=== PATIENT | female | born 1960 | race Caucasian/White ===

== ENCOUNTER → 2016-11-17 | Outpatient (CLI) | payer MEDICARE, OTHER ==
[~2016-11-17] MED LIST: ALBUTEROL 0.083% NEB; ALBUTEROL INHALER INH; ASPIRIN 325MG325 MG PO; BUSPIRONE HCL15 MG PO; CLEOCIN HCL300 MG PO; ELAVIL 50 MG TA50 MG PO; HYDROCODON-ACE1 EAC6 PO; IBUPROFEN800 MG PO; LORTAB 5-325 M1 EACH PO; NEURONTIN800 MG PO; PERCOCET 10-321 EACH PO; PROZAC20 MG PO; TORADOL 10 MG T10 MG PO; XARELTO10 MG PO; ZANTAC300 MG PO; ZOFRAN4 MG PO
[2016-11-17 10:06] LABS: HEMOGLOBIN 14.5 gm/dl (12.3-15.3); RED BLOOD COUNT 4.5 M/UL (4.00-5.10); WHITE BLOOD COUNT 7.7 K/UL (4.5-11.0)
[2016-11-17 10:28] LABS: BUN/CREATININE RATIO 15 (0-10)
== END ==
LOC: OPSV2 08:57
PROVIDERS: Orthopaedic Surgery
DX: Z01.818 Encounter for other preprocedural examination (principal); M13.862 Other specified arthritis, left knee
CPT/HCPCS: 36415; 80048; 81001; 85025; 87081; 93005

== ENCOUNTER → 2016-11-29 | Outpatient (CLI) | payer MEDICARE, OTHER | LOC: LAB 13:23 | DX: Z01.818 Encounter for other preprocedural examination (principal); M17.12 Unilateral primary osteoarthritis, left knee | CPT/HCPCS: 36415; 80051; 82565; 84520; 86850; 86900; 86901 ==

== ENCOUNTER 2016-11-30 07:50 | Observation (INO) | payer MEDICARE, OTHER ==
[~2016-11-30] VITALS: Ht 162.6 cm; Wt 71.2 kg
[~2016-11-30 07:50] MED LIST changes: -ALBUTEROL INHALER INH; -ASPIRIN 325MG325 MG PO; -CLEOCIN HCL300 MG PO; -HYDROCODON-ACE1 EAC6 PO; -IBUPROFEN800 MG PO; -LORTAB 5-325 M1 EACH PO; -TORADOL 10 MG T10 MG PO; -ZOFRAN4 MG PO
[2016-11-30] MEDS ORDERED: LORTAB 5-325 M1 EACH PO (08:32)
[2016-11-30] MEDS ORDERED: HYDROCODON-ACE1 EAC6 PO (08:33)
[2016-11-30] MEDS ORDERED: ALBUTEROL INHALER INH (08:34)
[2016-11-30] MEDS ORDERED: TORADOL 10 MG T10 MG PO (19:30)
[2016-11-30] MEDS ORDERED: IBUPROFEN800 MG PO ×2 (19:31→19:35)
[2016-11-30] MEDS ORDERED: CLEOCIN HCL300 MG PO (19:36)
[2016-11-30] MEDS ORDERED: PERCOCET 10-321 EACH PO (19:36)
[2016-11-30] MEDS ORDERED: ASPIRIN 325MG325 MG PO (19:37)
[2016-11-30] MEDS ORDERED: ZOFRAN4 MG PO (19:37)
[2016-12-01 06:40] LABS: HEMOGLOBIN 10.7 gm/dl (12.3-15.3); RED BLOOD COUNT 3.44 M/UL (4.00-5.10); WHITE BLOOD COUNT 9.8 K/UL (4.5-11.0)
[2016-12-01 06:59] LABS: BUN/CREATININE RATIO 14 (0-10)
[2016-12-01] MEDS ORDERED: XARELTO10 MG PO (10:49)
[2016-12-01] MEDS ORDERED: PERCOCET 10-321 EACH PO (10:50)
== END 2016-12-01 15:32 | disposition home or self-care (01) ==
LOC: OR 07:50 → EDSTATUS 12:30 → M/S 14:08 → OR 14:37 → M/S 12-01 15:32
PROVIDERS: ADMIT Orthopaedic Surgery
PROC: 0SRD0L9 Replacement of Left Knee Joint with Medial Unicondylar Synthetic Substitute, Cemented, Open Approach (ICD-10-PCS; principal; 2016-11-30 12:30)
DX: M17.12 Unilateral primary osteoarthritis, left knee (principal); M22.42 Chondromalacia patellae, left knee; J45.909 Unspecified asthma, uncomplicated; J44.9 Chronic obstructive pulmonary disease, unspecified; K21.9 Gastro-esophageal reflux disease without esophagitis; M81.0 Age-related osteoporosis without current pathological fracture; G89.29 Other chronic pain; M54.9 Dorsalgia, unspecified; F41.9 Anxiety disorder, unspecified; F32.9 Major depressive disorder, single episode, unspecified; F17.210 Nicotine dependence, cigarettes, uncomplicated; Z82.49 Family history of ischemic heart disease and other diseases of the circulatory system; Z83.3 Family history of diabetes mellitus; Z88.8 Allergy status to other drugs, medicaments and biological substances; Z79.891 Long term (current) use of opiate analgesic; Z79.899 Other long term (current) drug therapy; Z96.651 Presence of right artificial knee joint; Z98.890 Other specified postprocedural states
CPT/HCPCS: 36415; 73560; 80048; 85025; 96374; 96375; 96376; 97116; 97530; 97535; C1713; G0378; J0690; J1100; J1885; J2001; J2250; J2270; J2405; J2710; J2795; J3010; J3370; J7030; J7050; J7120

== ENCOUNTER 2020-10-08 12:38 | Emergency (ER) | payer MEDICARE, OTHER ==
[~2020-10-08 12:38] MED LIST changes: +ALBUTEROL INHALER INH; +AMITRIPTYLINE H50 MG PO; +ASPIRIN 325MG325 MG PO; +CLEOCIN HCL300 MG PO; +HYDROCODON-ACE1 EAC6 PO; +IBUPROFEN800 MG PO; +LORTAB 5-325 M1 EACH PO; +MACRODANTIN100 MG PO; +NEURONTIN 400400 MG PO; +NORCO 10-325 T1 EACH PO; +TORADOL 10 MG T10 MG PO; +ZOFRAN 4 MG TAB4 MG PO; +ZOFRAN4 MG PO
[2020-10-08 14:48] LABS: HEMOGLOBIN 13.6 gm/dl (12.3-15.3); RED BLOOD COUNT 4.17 M/UL (4.00-5.10); WHITE BLOOD COUNT 6.9 K/UL (4.5-11.0)
[2020-10-08 15:04] LABS: BUN/CREATININE RATIO 14 (0-10)
[2020-10-08] MEDS ORDERED: PROTONIX40 M1 PO (19:08)
== END 2020-10-08 19:18 | disposition home or self-care (01) ==
LOC: ER1 12:38
PROVIDERS: Emergency Medicine
DX: R04.2 Hemoptysis (principal); F17.210 Nicotine dependence, cigarettes, uncomplicated; Z90.89 Acquired absence of other organs
CPT/HCPCS: 71045; 80053; 81001; 82550; 82553; 83605; 83690; 83874; 84484; 85025; 85379; 85610; 93005; 96374; 96375; 99284; J2270; J2405; J7030; Q9967

== ENCOUNTER 2021-01-27 16:53 | Observation (INO) | payer MEDICARE, OTHER ==
[~2021-01-27] VITALS: Ht 162.6 cm; Wt 68.0 kg
[~2021-01-27 16:53] MED LIST changes: +PROTONIX40 M1 PO
[2021-01-27 17:48] LABS: HEMOGLOBIN 14.1 gm/dl (12.3-15.3); RED BLOOD COUNT 4.05 M/UL (4.00-5.10); WHITE BLOOD COUNT 11.2 K/UL (4.5-11.0)
[2021-01-27 18:43] LABS: BUN/CREATININE RATIO 23 (0-10)
[2021-01-28] MEDS ORDERED: PROZAC 20 MG CA20 MG PO (01:49)
[2021-01-28 07:49] LABS: BUN/CREATININE RATIO 20 (0-10)
[2021-01-28] MEDS ORDERED: HYDROCODON-ACE1 EAC6 PO (18:55)
--- NOTE | 2021-01-28 18:57 | NUR ---
SEE NEW ORDERS FROM DR. CURRAN FOR PAIN, N/V.
[2021-01-29 06:50] LABS: HEMOGLOBIN 13.6 gm/dl (12.3-15.3); RED BLOOD COUNT 3.98 M/UL (4.00-5.10); WHITE BLOOD COUNT 7.3 K/UL (4.5-11.0)
[2021-01-29 07:12] LABS: BUN/CREATININE RATIO 21 (0-10)
--- NOTE | 2021-01-29 12:11 | NUR ---
DR. CURRAN NOTIFIED OF 7 BEAT RUN OF VTACH. NO NEW ORDERS
--- NOTE | 2021-01-29 14:22 | NUR ---
ambulated patient in hallway monitoring o2 saturation. sat 88%
[2021-01-29] MEDS ORDERED: FAMOTIDINE20 MG PO (14:37)
[2021-01-29] MEDS ORDERED: ASPIRIN EC81 MG PO (14:37)
[2021-01-29] MEDS ORDERED: LOPRESSOR 25 MG25 MG PO (14:37)
[2021-01-29] MEDS ORDERED: ATORVASTATIN CA20 MG PO (14:37)
== END 2021-01-29 16:40 | disposition home or self-care (01) ==
LOC: ER1 16:53 → CDU 20:16 → M/S 20:16
PROVIDERS: Internal Medicine; Physician Assistant Medical; ADMIT Internal Medicine
DX: R07.89 Other chest pain (principal); E87.6 Hypokalemia; E16.2 Hypoglycemia, unspecified; R09.02 Hypoxemia; R71.8 Other abnormality of red blood cells; E78.5 Hyperlipidemia, unspecified; F17.210 Nicotine dependence, cigarettes, uncomplicated; F15.10 Other stimulant abuse, uncomplicated; G89.4 Chronic pain syndrome; F41.9 Anxiety disorder, unspecified; F32.9 Major depressive disorder, single episode, unspecified; K21.9 Gastro-esophageal reflux disease without esophagitis; Z20.822 Contact with and (suspected) exposure to COVID-19; Z87.11 Personal history of peptic ulcer disease; Z96.653 Presence of artificial knee joint, bilateral; Z98.890 Other specified postprocedural states; Z96.698 Presence of other orthopedic joint implants; Z79.899 Other long term (current) drug therapy; Z88.5 Allergy status to narcotic agent
CPT/HCPCS: ECHO; 36415; 36600; 71045; 78452; 80048; 80053; 80061; 82550; 82553; 82607; 82652; 82746; 82803; 82962; 83036; 83735; 83874; 84100; 84439; 84443; 84484; 84550; 85025; 93005; 93017; 93306; 96372; 96374; 96375; 96376; 99285; A9502; C9113; G0378; J1650; J2405; J2550; J2785; U0002

== ENCOUNTER → 2021-04-06 | Outpatient (CLI) | payer MEDICARE, OTHER ==
[~2021-04-06] MED LIST changes: +ASPIRIN EC81 MG PO; +ATORVASTATIN CA20 MG PO; +FAMOTIDINE20 MG PO; +LOPRESSOR 25 MG25 MG PO; +PROZAC 20 MG CA20 MG PO
== END ==
LOC: HEART 5 11:47
DX: J44.9 Chronic obstructive pulmonary disease, unspecified (principal); R94.2 Abnormal results of pulmonary function studies; F17.210 Nicotine dependence, cigarettes, uncomplicated
CPT/HCPCS: 94060; 94729

== ENCOUNTER → 2021-04-06 | Outpatient (CLI) | payer MEDICARE, OTHER | LOC: RT 13:28 | DX: R09.02 Hypoxemia (principal) | CPT/HCPCS: 36600; 82803 ==

== ENCOUNTER → 2022-03-02 | Outpatient (CLI) | payer MEDICARE, OTHER | LOC: HEART 5 02-16 09:00 | DX: I25.10 Atherosclerotic heart disease of native coronary artery without angina pectoris (principal); I10 Essential (primary) hypertension; R42 Dizziness and giddiness; R06.02 Shortness of breath | CPT/HCPCS: 78452; 93306; A9502; J2785 ==